=== PATIENT | female | born 1945 | race Two or more races ===

== ENCOUNTER 2024-04-27 08:44 | Day surgery (SDC) | payer MEDICARE, MEDICAID, SELFPAY ==
--- NOTE | 2024-04-26 07:00 | EKG_ITS ---
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
[2024-04-26 10:23] LABS: Basophils % (Auto) 1 % (0-2.5); Eosinophils # (Auto) 0.1 Thou/mm3 (0.0-0.5); Eosinophils % (Auto) 1 % (0-10); Hematocrit 42.6 % (36.0-46.0); Hemoglobin 13.7 g/dL (12.0-16.0); Immature Granulocytes % (Auto) 0 % (0-0); Immature Granulocytes Auto 0.01 Thou/mm3 (0.00-0.00); Lymphocytes # (Auto) 1.7 Thou/mm3 (1.0-4.8); Lymphocytes % (Auto) 23 % (10-50); Mean Corpuscular HGB Conc 32.2 g/dl (31.0-37.0); Mean Corpuscular Hemoglobin 29.4 pg (25.0-35.0); Mean Corpuscular Volume 91 fL (80-100); Monocytes # (Auto) 0.6 Thou/mm3 (0.0-0.8); Monocytes % (Auto) 7 % (0-12); Neutrophils # (Auto) 5.2 Thou/mm3 (1.8-7.7); Neutrophils % (Auto) 69 % (37-80); Nucleated Red Blood Cell % 0 /100 WBC (0); Platelet Count 174 Thou/mm3 (140-440); RDW Standard Deviation 45.9 fL (36.4-46.3); Red Blood Count 4.66 Miln/mm3 (4.00-5.20); White Blood Count 7.6 Thou/mm3 (3.6-11.0)
[2024-04-26 10:43] LABS: Anion Gap 7 (7-16); BUN/Creatinine Ratio 17 Ratio (12-20); Blood Urea Nitrogen 19 mg/dL (9-23); Calcium 9.4 mg/dL (8.3-10.6); Carbon Dioxide 29.3 mMol/L (20.0-31.0); Chloride 103 mMol/L (98-107); Creatinine (Component) 1.1 mg/dL (0.6-1.3); Glucose 211 mg/dL (74-106); INR 1.2 (0.9-1.3); Osmolality,Calculated 285 (275-295); Partial Thromboplastin Time 26.9 Seconds (22.0-36.0); Potassium 3.5 mMol/L (3.4-5.1); Prothrombin Time 12.5 Seconds (9.0-12.2); Sodium 139 mMol/L (136-145); eGFR 51 See Note
[2024-04-27] VITALS (14 sets, daily range): BP systolic 128–178; BP diastolic 84–122; PULSE 65–135; RESP 9–20; TEMP 36.2–36.6; O2SAT 90–95
--- NOTE | 2024-04-27 08:29 | ECHO_ITS ---
Transesophageal Echo Report Ht (in): 61 Wt (lb): 207 Exam Location: [facility] Instructor Status: Outpatient [place] Producer: Mago Chin Indications: Procedure Performed: BP: 139 / 84 HR: 101 Contrast: Agitated Saline Rhythm: Atrial fibrillation Technical Quality: Fair Total Dose(mL): Medications The patient is medicated with 2mg of intravenous Versed and 50mcg of intraveous Fentanyl. Complications There are no complications prior to, during or in recovery from the transesophageal echocardiogram. FINDINGS Left Ventricle Normal left ventricular size, systolic function with no obvious regional wall motion abnormalities. The ejection fraction is visually estimated at 55-60 %. Right Ventricle The right ventricle is normal in size and systolic function. The estimated right ventricular systoli c pressure,59 mmHg. RAP 15. Left Atrium The left atrium is moderately dilated. Right Atrium The right atrium is moderaely dilated. Atrial Appendages The left atrial appendage appears normal with no evidence for thrombus. Atrial Septum The interatrial septum appears normal with no evidence of a shunt. Aorta The aorta is normal. Mitral Valve The mitral valve is normal. There is no significant mitral valve regurgitation. Aortic Valve The aortic valve is trileaflet and normal. There is no significant aortic valve regurgitation. Tricuspid Valve The tricuspid valve is normal.. There is moderate tricuspid valve regurgitation. Pulmonic Valve The pulmonic valve is normal. There is trace pulmonic valve regurgitation. Vessels The pulmonary artery appears normal. The inferior vena cava pulmonary and hepatic veins appear maria luisa l. Pericardium The pericardium is normal. There is no significant pericardial effusion. CONCLUSIONS Indication: Afib and Cardioversion No evidence of LA/VANESSA thrombus. Negative bubble study. No evidence of PFO or ASD. Normal LV size and function. Estimated EF 55-60% Normal RV size and function. Estimated RVSP 59mmHg Moderate Biatrial dilation. Moderate to severe MR. ModerateTR. Trace PI. Plumonary veins flow shows systolic blunting. Andrews Cui (Electronically Signed) Final Date: 27 April 2024 22:52
[2024-04-27] MEDS: APIXABAN 2.5 MG TABLET 5 MG PO (08:55)
[2024-04-27] MEDS: METOPROLOL TARTRATE 25 MG TABLET PO (09:05)
[2024-04-27] MEDS: BENZOCAINE 20% (Hurricaine) SPRAY 1 DOSE TOP (09:30)
[2024-04-27] MEDS: fentaNYL CIT INJ 50 mCg/ML AMP 2ML 75 MCG IV (09:32)
[2024-04-27] MEDS: MIDAZOLAM INJ 1 MG/ML VIAL 2 ML 2.5 MG IV (09:32)
--- NOTE | 2024-04-27 10:02 | EKG_ITS ---
[facility] Test Date: 2024-04-27 Pat Name: MONICA LYNN Department: Room: - Gender: Female Mobile Service Rv Technician: : 1945 Requested By: Andrews Cui Order Number: [id number] Reading MD: Andrews Cui Measurements Intervals [place] Rate: 66 P: 39 [place]: 181 QRS: -5 QRSD: 92 T: 23 QT: 433 QTc: 454 Interpretive Statements SINUS RHYTHM NONSPECIFIC T-WAVE ABNORMALITY Compared to ECG 04/26/2024 10:12:31 Atrial fibrillation no longer present Ventricular premature complex(es) no longer present Aberrant conduction of supraventricular beat(s) no longer present T-wave abnormality still present /store/S0/[id number]/[id number].pdf
--- NOTE | 2024-04-27 11:00 | PD.CARDOPNOT ---
Procedure Direct current cardioversion for uncontrolled atrial fibrillation Moderate Conscious Sedation with Versed and Fentanyl Date of Procedure 04/27/24 Pre Op Diagnosis Atrial Fibrillation Indication Atrial Fibrillation Post Op Diagnosis Normal Sinus Rhythm restored. Procedure Description Patient was in atrial fibrillation and ventricular rate was controlled came in for elective cardioversion as patient was having significant symptoms for the Afib. Decision was made to perform cardioversion for the patient after performing a transesophageal echocardiogram. Transesophageal echocardiogram was completed today and did not show any significant LA or VANESSA thrombus.? Please see ANN MARIE report from today for rest of the findings.? Patient was already on anticoagulation with eliquis.. Patient was taken to the labor standards director for the ANN MARIE and cardioversion, both anterior and posterior pads were placed.? Patient was given moderate sedation and received a total of 2.5 mg of Versed and 75 mcg of fentanyl prior to the procedure to provide him enough for sedation. A biphasic defibrillator was used.? A single 100 J synchronized shock was given and the patient converted successfully into normal sinus rhythm.? No complications during or after the procedure.? Patient is doing well.? His heart rate was stable between 50 to 70 bpm and appears to be normal sinus rhythm on the telemetry.? Recommend to perform an EKG to document normal sinus rhythm postprocedure.? Patient will be monitored in the labor standards director for the next 1-2 hours and will be discharged home if hemodynamically stable. Will adjust his medications for atrial fibrillation as outpatient. Estimated Blood Loss 0 Specimen(s) Specimen(s): none Conclusion Successful direct current cardioversion of Atrial Fibrillation / Flutter to Normal Sinus Rhythm Recommendation Continue metoprolol XL 25 mg Q Day if BP stable. Continue Eliquis 5 mg BID for anticaogulation. EKG to document NSR post procedure. No driving for 24 hours. Patient recommended to follow up in 1 week in the clinic. Surgical Staff Surgeon: Andrews Cui MD
== END 2024-04-27 10:55 | disposition home or self-care (01) ==
PROVIDERS: Referring Provider Internal Medicine Cardiovascular Disease; Visit Provider Internal Medicine Cardiovascular Disease
PROC: 5A2204Z Restoration of Cardiac Rhythm, Single (ICD-10-PCS; CPT 92960; principal; 2024-04-27 10:00)
PROC: (CPT 93312; 2024-04-27 10:00)
DX: I48.91 Unspecified atrial fibrillation (principal)
CPT/HCPCS: 92960; 36415; 80048; 85025; 85610; 85730; 93005; 93312; 99152; J2250; J3010; A9270

== ENCOUNTER → 2024-06-15 | Outpatient (CLI) | payer MEDICARE, MEDICAID, SELFPAY ==
[2024-06-15 14:01] LABS: Anion Gap 9 (7-16); BUN/Creatinine Ratio 16 Ratio (12-20); Blood Urea Nitrogen 16 mg/dL (9-23); Calcium 9.1 mg/dL (8.3-10.6); Carbon Dioxide 32.4 mMol/L (20.0-31.0); Chloride 102 mMol/L (98-107); Glucose 87 mg/dL (74-106); Magnesium 1.5 mg/dL (1.6-2.6); Osmolality,Calculated 285 (275-295); Potassium 3.9 mMol/L (3.4-5.1); Sodium 143 mMol/L (136-145); eGFR 57 See Note
== END | disposition home or self-care (01) ==
LOC: COPL 12:25
PROVIDERS: Referring Provider Internal Medicine Cardiovascular Disease; Visit Provider Internal Medicine Cardiovascular Disease
DX: I10 Essential (primary) hypertension (principal); I48.91 Unspecified atrial fibrillation
CPT/HCPCS: 36415; 80048; 83735